=== PATIENT | male | born 1960 | race Caucasian/White ===

== ENCOUNTER 2021-07-27 16:32 | Observation (INO) | payer BC, SELFPAY ==
[2021-07-27] VITALS (7 sets, daily range): BP systolic 134–168; BP diastolic 84–99; PULSE 60–74; RESP 16–20; TEMP 35.6–36.9; O2SAT 94–99; BMI 24.7; BMI 24.4
--- NOTE | 2021-07-27 16:34 | NURSING ---
NO OLD EKGS
--- NOTE | 2021-07-27 17:07 | EDS_ITS ---
HPI History of Present Illness Chief Complaint: Chest Pain Informant: patient Onset/Context/Timing Onset: Weeks (3-4) Activity at onset: gradual Timing: Intermittent Quality: Positive for Heaviness and Tightness Location: Substernal and Left Parasternal Worsened By: Exertion Relieved By: Nothing Associated Symptoms: Positive for Dyspnea, Lightheadedness and Acid Reflux; Negative for Nausea, Vomiting, Diaphoresis, Cough, Fever and Palpitations Narrative Narrative: Patient presents with chest pain that has been intermittent over the last 3 to 4 weeks. Patient states that it comes on after he is done exercising. Patient describes it as a heaviness and tightness in his lower chest and left parasternal area. Patient states it is also worse with stress. Patient admits to some shortness of breath and lightheadedness. Patient denies any nausea or vomiting. Patient denies any diaphoresis. Patient denies any cough or fever. CVD Risk Factors: Positive for Hypercholesterolemia; Negative for Hypertension, Diabetes, Family History 1' </=55 and Smoking PE Risk Factors: Negative for Recent Travel/Surgery, Recent Immobilization, Prior DVT or PE, Cancer and OCP + Smoking + >/=35 PFSH PFSH Medical History Cholecystectomy planned GERD (gastroesophageal reflux disease) Hyperlipemia Home Medications atorvastatin 20 mg PO QHS 07/27/21 [History Last Taken 07/27/21] omeprazole 20 mg PO DAILY 07/27/21 [History Last Taken 07/26/21] Allergy/AdvReac Type Severity Reaction Status Date / Time No Known Allergies Allergy Verified 07/27/21 16:35 Family History (Updated 07/27/21 @ 19:09 by Marta Giang NP-C) Father Myocardial infarction CAD (coronary artery disease) Heart disease Sister Hypertension Mother Hypertension also has CHF Surgical History Hx of cholecystectomy Social History (Updated 07/27/21 @ 19:[address] Chelsey Carnes MD) household members: spouse Smoking Status: Never smoker alcohol intake: current alcohol intake frequency: holidays/special occasions only substance use type: does not use ROS ROS ED Constitutional Constitutional ED: Denies chills or fever(s) Eyes Eyes: Denies blurry vision or change in vision ENT ENT ED: Denies rhinorrhea or sore throat Cardiovascular Cardiovascular: Reports chest pain; Denies palpitations Respiratory/Chest Respiratory/Chest: Reports dyspnea; Denies cough Gastrointestinal Gastrointestinal: Reports nausea; Denies abdominal pain or vomiting Genitourinary Genitourinary ED: Denies dysuria or hematuria Musculoskeletal Musculoskeletal: Denies back pain or neck pain Integumentary Denies abscess or rash Neurologic Neurologic: Denies headache(s) or weakness Allergic/Immunologic Allergic/Immunologic ED: Denies mouth swelling or urticaria EXAM Physical Exam Const Vital Signs: 07/27/21 16:34 07/27/21 16:48 07/27/21 17:19 Temperature 96.9 F L Temperature Source Temporal Pulse Rate 69 66 Respiratory Rate 16 18 Respiratory Effort Normal Blood Pressure 168/97 H 161/98 H Blood Pressure Mean 120 119 Pulse Ox 99 98 Oxygen Delivery Method Room Air Room Air Room Air 07/27/21 18:38 07/27/21 18:51 Temperature 98.1 F Temperature Source Temporal Pulse Rate 65 60 Respiratory Rate 20 H 18 Respiratory Effort Blood Pressure 137/92 H 156/98 H Blood Pressure Mean 107 117 Pulse Ox Oxygen Delivery Method Positive well nourished and well developed General Appearance ED: well developed and NAD HEENT normocephalic and atraumatic Eyes PERRL and EOMs intact bilaterally Neck supple and no JVD Chest Wall palpation of chest normal Resp normal respiratory effort and clear to auscultation bilaterally Effort and Inspection: Negative for respiratory distress Cardio regular rate, regular rhythm and no murmurs GI normal to inspection, nondistended, normoactive bowel sounds, soft to palpation, non-tender and non-distended Extremity normal to inspection General Extremety ED: Negative for edema or tenderness General Extremity: Negative for edema Neuro oriented x3, CN's II-XII intact bilaterally and no sensory deficits noted Sensorium / Orientation: awake and alert Motor Exam: strength 5/5 throughout Psych mental status grossly normal Heart Score History: Moderately Suspicious ECG: Normal Age: >45 - <65 years Risk Factors: 1 or 2 Risk Factors Troponin: </= Normal Limit Score: 3 MDM MDM MDM Narrative Medical decision making narrative: EKG was obtained. On my interpretation, it showed a normal sinus rhythm with a rate of 64. PA interval, QRS interval, and QTc intervals were all normal. There is left axis deviation at -36. There are no acute ST or T wave changes. CBC was within normal limits. Basic metabolic profile shows a BUN of 24 and creatinine 1.31. There are no prior values to compare with. Initial high-sensitivity troponin was normal at 26. Portable 1 view chest x-ray was obtained. On my interpretation, lung clemens are clear. There is normal cardiac silhouette. Bony thorax is normal. There is no acute process noted. Radiologist also interpreted the x-ray and agrees. I discussed the case with the hospitalist. Patient will be admitted to the hospital for observation and stress testing. Patient understands and is agreeable with the plan. All questions were answered. Lab Data Attestation: I reviewed the patient's lab results. Labs: Laboratory Results - last 24 hr 07/27/21 07/27/21 07/27/21 16:50 16:50 16:50 WBC 6.6 RBC 5.28 Hgb 16.2 Hct 47.1 MCV 89.2 MCH 30.7 MCHC 34.4 RDW Std Deviation 40.6 RDW Coeff of Ama 12.3 Plt Count 211 MPV 10.5 Immature Gran % (Auto) 0.300 Neut % (Auto) 61.2 Lymph % (Auto) 28.2 [place] % (Auto) 9.1 Eos % (Auto) 0.9 Baso % (Auto) 0.3 Absolute Neuts (auto) 4.0 Absolute Lymphs (auto) 1.86 Nucleated RBC % 0 Sodium 141 Potassium 4.1 Chloride 107 Carbon Dioxide 30.0 Anion Gap 4 L BUN 24 H Creatinine 1.31 H Estim Creat Clear Calc 53.44 Est GFR (MDRD) Af Amer 71 Est GFR (MDRD) Non-Af 59 L BUN/Creatinine Ratio 18.3 Glucose 105 Calcium 9.5 Troponin I High Sens 26 Radiography Chest X-Ray - ED: 1 View, Read by ED Physician, Read by Radiologist and No Acute Disease Diagnostic Testing: Clinical Impression(s) from Imaging Studies Chest X-Ray 07/27/21 17:25 IMPRESSION: Normal x-ray examination of the chest. Electronically Signed: Mac Moulton DO at 18:58 EDT Reading Location ID and State: [facility] / [place] Tel [phone], Service support , EKG Initial EKG: Attestation: I personally reviewed and interpreted this EKG as follows: Interpretation: Sinus Rhythm (64) and No Acute Injury Pattern Comments: Left axis deviation Prior EKG tracings: not available for review Discharge Plan Dx/Rx/DC Orders Clinical Impression: Chest pain, Hypercholesterolemia Disposition Disposition: Acute Care Hospital [facility] Discharge Date/Time: 07/27/21 19:03
--- NOTE | 2021-07-27 17:12 | EKG12_ITS ---
Test Reason : CP Blood Pressure : / mmHG Vent. Rate : 064 BPM Atrial Rate : 064 BPM P-R Int : 178 ms QRS Dur : 108 ms QT Int : 390 ms P-R-T Axes : 014 -36 005 degrees QTc Int : 402 ms Normal sinus rhythm Left axis deviation Abnormal ECG Confirmed by MILADIS THRASHER, MELLISA ([id number]), editor dictionary DORENE MONROE ([id number]) on 07/28/2021 11:17:51 AM Referred By: CHUCK/ROSA Confirmed By:MELLISA REDDING MD
[2021-07-27] MEDS: Aspirin 81 MG TAB.CHEW 324 MG PO (17:22)
--- NOTE | 2021-07-27 17:25 | RAD_ITS ---
STUDY: X-RAY CHEST REASON FOR EXAM: Male, 60 years old. Chest pain TECHNIQUE: Frontal view COMPARISON: None. FINDINGS: The lungs are clear and expanded. There is no demonstrated pleural abnormality. Normal size heart. Normal mediastinum and adrianne. Normal visualized pulmonary arteries. Normal visualized aortic arch and descending thoracic aorta. Normal visualized thoracic spine. Normal visualized ribs, clavicles, and shoulders. There is no demonstrated abnormality of the visualized soft tissue structures of the upper abdomen. RAD/Chest 1 View (Portable) IMPRESSION: Normal x-ray examination of the chest. Electronically Signed: Mac Moulton DO at 18:58 EDT Reading Location ID and State: [facility] / [place] Tel [phone], Service support ,
[2021-07-27 17:46] LABS: Absolute Lymphocyte Count 1.86 X10^3/uL (0.83-4.51); Basophil# 0.02 X10^3/uL; Basophil% 0.3 % (0-1); Eosinophil# 0.06 X10^3/uL; Eosinophils% 0.9 % (0-5); Hematocrit 47.1 % (40-54); Hemoglobin 16.2 g/dL (13.0-16.5); Lymphocyte # 1.86 X10^3/ul (0.83-4.51); Lymphocyte % 28.2 % (19-41); Mean Corp Hgb Conc 34.4 g/dL (32-36); Mean Corpuscular Hgb 30.7 pg (27.0-32.0); Mean Corpuscular Volume 89.2 fL (80-94); Mean Platelet Vol. 10.5 fl (6.2-12.0); Monocyte% 9.1 % (0-10); NRBC Flagged by Analyzer 0 % (0-5); Neutrophil # 4.03 X10^3/uL (2.7-7.7); Neutrophil % 61.2 % (47-70); Platelet Count 211 K/mm3 (150-450); RBC Distribution Width CV 12.3 % (11.6-14.6); RBC Distribution Width SD 40.6 fl (35.1-43.9); Red Blood Count 5.28 M/mm3 (4.6-6.2); White Blood Count 6.6 K/mm3 (4.4-11.0)
[2021-07-27 18:02] LABS: Anion Gap 4 (5-15); BUN 24 mg/dL (7-18); BUN/Creat Ratio 18.3 RATIO (10-20); Calcium,Total 9.5 mg/dL (8.5-10.1); Chloride 107 mmol/L (98-107); Creatinine, Serum 1.31 mg/dL (0.70-1.30); EST Glomerular Filtration Rate 59 mL/min (>60); Est Glom Filt Rate - Afr Amer 71 mL/min (>60); Estimated Creatinine Clearance 53.44 ml/min; Glucose 105 mg/dL (74-106); Potassium 4.1 mmol/L (3.5-5.1); Sodium Level 141 mmol/L (136-145)
[2021-07-27 18:07] LABS: Troponin-I HS (w/2H Reflex) 26 pg/mL (3.0-78.0)
[2021-07-27 18:51] LABS: Reflex Troponin-HS? (from REC) Y
--- NOTE | 2021-07-27 19:05 | PCM.HP.STD ---
Documented by User: PAULA Duke 07/27/21 19:17 HPI - General General Date of Admission: 07/27/21 Date of Service: 07/27/21 Chief Complaint: Chest pain HPI Narrative KAVIN WOLFE, is a 60 M who presents with complaints of chest pain and pressure intermittently over the past few weeks. Patient states that it is a dull ache more than a sharp pain and does not come on during exercise but after exercise is complete. Patient's is at bedside and stated that the most recent episode was this morning after patient completed his workout. Patient states that it is always directly after physical activity and does go away with rest. Patient has no known cardiac disease. Patient's medical history includes chronic gastritis and hyperlipidemia for which patient has been on Lipitor for at least 20 years. FORMERLY [facility], [facility]–1983 Medical History Cholecystectomy planned GERD (gastroesophageal reflux disease) Hyperlipemia Home Medications atorvastatin 20 mg PO QHS 07/27/21 [History Last Taken 07/27/21] omeprazole 20 mg PO DAILY 07/27/21 [History Last Taken 07/26/21] Allergy/AdvReac Type Severity Reaction Status Date / Time No Known Allergies Allergy Verified 07/27/21 16:35 Family History (Updated 07/27/21 @ 19:09 by PAULA Duke) Father Myocardial infarction CAD (coronary artery disease) Heart disease Sister Hypertension Mother Hypertension also has CHF Surgical History Hx of cholecystectomy Social History (Updated 07/27/21 @ 19:[address] Chelsey Carnes MD) household members: spouse Smoking Status: Never smoker alcohol intake: current alcohol intake frequency: holidays/special occasions only substance use type: does not use ROS Constitutional Constitutional: Denies anorexia, chills, fatigue, fever(s) or weakness Cardiovascular Cardiovascular: Reports chest pain with activity; Denies edema, irregular heart rhythm, leg edema, nausea or vomiting Respiratory/Chest Respiratory/Chest: Denies cough, shortness of breath at rest, shortness of breath with exertion or wheezing Gastrointestinal Gastrointestinal: Denies abdominal pain, constipation, diarrhea, nausea or vomiting Genitourinary Genitourinary: Denies dysuria Musculoskeletal Musculoskeletal: Denies back pain, extremity pain, joint pain or joint stiffness Integumentary Integumentary: Denies dry skin Neurologic Neurologic: Denies abnormal gait, abnormal speech, confusion or dizziness Psychiatric Psychiatric: Reports anxiety; Denies depression Endocrine Endocrinology: Denies change in body appearance Hematologic/Lymphatic Hematologic/Lymphatic: Denies anemia Vital Signs Vital Signs Vital Signs: 07/27/21 16:34 07/27/21 16:48 07/27/21 17:19 Temperature 96.9 F L Temperature Source Temporal Pulse Rate 69 66 Respiratory Rate 16 18 Respiratory Effort Normal Blood Pressure 168/97 H 161/98 H Blood Pressure Mean 120 119 Pulse Ox 99 98 Oxygen Delivery Method Room Air Room Air Room Air 07/27/21 18:38 07/27/21 18:51 Temperature 98.1 F Temperature Source Temporal Pulse Rate 65 60 Respiratory Rate 20 H 18 Respiratory Effort Blood Pressure 137/92 H 156/98 H Blood Pressure Mean 107 117 Pulse Ox Oxygen Delivery Method Weight Weight: 153 lb Body Mass Index (BMI) 24.7 Physical Exam Const alert, oriented x3 and no apparent distress General Appearance: cooperative HEENT normocephalic and head/scalp atraumatic Eyes conjunctivae normal and no scleral icterus Neck no lymphadenopathy and supple General: trachea midline Resp normal respiratory effort, normal air movement and clear to auscultation bilaterally Cardio regular rate, regular rhythm, S1 normal heart sound, S2 normal heart sound and peripheral pulses 2+ throughout GI normal to inspection, nondistended, normoactive bowel sounds, soft to palpation and non-tender Extremity normal capillary refill and no clubbing, cyanosis or edema General Extremity: no tenderness to palpation of joints or extremities Skin General Skin Exam: no breakdown and turgor normal Lesions: no lesions Rashes: no rashes Neuro no focal motor deficits and no sensory deficits noted Motor Exam: Negative for general weakness Psych thought process normal, cooperative and affect normal Appearance: appropriate Results Lab / Micro Data Result Diagrams: 07/27/21 16:50 07/27/21 16:50 Labs: Laboratory Results - last 24 hr 07/27/21 16:50: WBC 6.6, RBC 5.28, Hgb 16.2, Hct 47.1, MCV 89.2, MCH 30.7, MCHC 34.4, RDW Std Deviation 40.6, RDW Coeff of Ama 12.3, Plt Count 211, MPV 10.5, Immature Gran % (Auto) 0.300, Neut % (Auto) 61.2, Lymph % (Auto) 28.2, [place] % (Auto) 9.1, Eos % (Auto) 0.9, Baso % (Auto) 0.3, Absolute Neuts (auto) 4.0, Absolute Lymphs (auto) 1.86, Nucleated RBC % 0 07/27/21 16:50: Sodium 141, Potassium 4.1, Chloride 107, Carbon Dioxide 30.0, Anion Gap 4 L, BUN 24 H, Creatinine 1.31 H, Estim Creat Clear Calc 53.44, Est GFR (MDRD) Af Amer 71, Est GFR (MDRD) Non-Af 59 L, BUN/Creatinine Ratio 18.3, Glucose 105, Calcium 9.5 07/27/21 16:50: Troponin I High Sens 26 Radiology Impression Chest X-Ray 07/27/21 17:25 IMPRESSION: Normal x-ray examination of the chest. Electronically Signed: Mac Moulton DO at 18:58 EDT Reading Location ID and State: [address] [place] [address] Tel [phone], Service support , Assessment & Plan Assessment/Plan (1) Chest pain: QUALIFIERS: Chest pain type: unspecified Qualified Code(s): R07.9 - Chest pain, unspecified PLAN: 1. Chest pain -Admit to PCU for cardiac monitoring -Trend cardiac enzymes overnight -Treadmill stress test ordered for a.m. -Cardiac diet ordered, n.p.o. at midnight -Daily weight -CBC and BMP ordered for a.m. -Vital signs per protocol -Oxygen therapy per protocol as needed -As needed morphine and nitroglycerin ordered -P.o. baby aspirin ordered daily 2. Renal insufficiency versus chronic disease -BUN and creatinine elevated at 24 and 1.31 respectively -No comparison labs available at this time -We will repeat BMP in a.m. 3. Hyperlipidemia -Continue atorvastatin 4. Chronic gastritis -Continue omeprazole DVT prophylaxis-not indicated This patient was seen by PAULA Duke under the supervision of Dr. Carnes. 28 minutes spent in clinical coordination of patient's plan of care. Documented by User: Dr. Chelsey Carnes MD 07/27/21 19:30 HPI - General General Date of Admission: 07/27/21 PFSH Medical History Cholecystectomy planned GERD (gastroesophageal reflux disease) Hyperlipemia Home Medications atorvastatin 20 mg PO QHS 07/27/21 [History Last Taken 07/27/21] omeprazole 20 mg PO DAILY 07/27/21 [History Last Taken 07/26/21] Allergy/AdvReac Type Severity Reaction Status Date / Time No Known Allergies Allergy Verified 07/27/21 16:35 Family History (Updated 07/27/21 @ 19:09 by ANTIONE DukeC) Father Myocardial infarction CAD (coronary artery disease) Heart disease Sister Hypertension Mother Hypertension also has CHF Surgical History Hx of cholecystectomy Social History (Updated 07/27/21 @ 19:[address] Chelsey Carnes MD) household members: spouse Smoking Status: Never smoker alcohol intake: current alcohol intake frequency: holidays/special occasions only substance use type: does not use Results Lab / Micro Data Result Diagrams: 07/27/21 16:50 07/27/21 16:50
--- NOTE | 2021-07-27 20:18 | EKG12_ITS ---
Test Reason : AM EKG Blood Pressure : / mmHG Vent. Rate : 055 BPM Atrial Rate : 055 BPM P-R Int : 190 ms QRS Dur : 110 ms QT Int : 430 ms P-R-T Axes : 005 -14 003 degrees QTc Int : 411 ms Sinus bradycardia Otherwise normal ECG Confirmed by MILADIS THRASHER, MELLISA ([id number]), slot editor DORENE MONROE ([id number]) on 07/29/2021 10:02:54 AM Referred By: Confirmed By:MELLISA REDDING MD
[2021-07-27 20:33] LABS: Troponin-I HS 26 pg/mL (3.0-78.0)
[2021-07-27] MEDS: Ibuprofen 600 MG Tablet PO (22:12)
[2021-07-27] MEDS: 0.9% Normal Saline 1,000 ML 100 ML IV (22:17)
[2021-07-27] MEDS: 0.9% Saline Lock 10 ML Syringe IV (22:18)
[2021-07-27 23:12] LABS: Troponin-I HS 25 pg/mL (3.0-78.0)
[2021-07-28] VITALS (8 sets, daily range): BP systolic 128–148; BP diastolic 73–95; PULSE 49–76; RESP 12–16; TEMP 36.1–36.6; O2SAT 97–100
[2021-07-28 05:55] LABS: Absolute Lymphocyte Count 2.17 X10^3/uL (0.83-4.51); Absolute Neutrophil Count 3.5 X10^3/uL (2.0-7.7); Basophil# 0.03 X10^3/uL; Basophil% 0.5 % (0-1); Eosinophil# 0.11 X10^3/uL; Eosinophils% 1.7 % (0-5); Hematocrit 41.8 % (40-54); Hemoglobin 14.5 g/dL (13.0-16.5); Lymphocyte # 2.17 X10^3/ul (0.83-4.51); Lymphocyte % 33.6 % (19-41); Mean Corp Hgb Conc 34.7 g/dL (32-36); Mean Corpuscular Hgb 30.6 pg (27.0-32.0); Mean Corpuscular Volume 88.2 fL (80-94); Mean Platelet Vol. 10.5 fl (6.2-12.0); Monocyte% 9.3 % (0-10); NRBC Flagged by Analyzer 0 % (0-5); Neutrophil # 3.53 X10^3/uL (2.7-7.7); Neutrophil % 54.6 % (47-70); Platelet Count 157 K/mm3 (150-450); RBC Distribution Width CV 12.3 % (11.6-14.6); RBC Distribution Width SD 39.9 fl (35.1-43.9); Red Blood Count 4.74 M/mm3 (4.6-6.2); White Blood Count 6.5 K/mm3 (4.4-11.0)
--- NOTE | 2021-07-28 05:55 | EKG12_ITS ---
Test Reason : CP ADMIT Blood Pressure : / mmHG Vent. Rate : 061 BPM Atrial Rate : 061 BPM P-R Int : 180 ms QRS Dur : 108 ms QT Int : 402 ms P-R-T Axes : 001 -32 -03 degrees QTc Int : 404 ms Normal sinus rhythm Left axis deviation Abnormal ECG Confirmed by MILADIS THRASHER, MELLISA ([id number]), market editor DORENE MONROE ([id number]) on 07/29/2021 10:03:21 AM Referred By: Confirmed By:MELLISA REDDING MD
[2021-07-28] MEDS: Aspirin 81 MG TAB.CHEW PO (06:30)
[2021-07-28 06:41] LABS: Anion Gap 5 (5-15); BUN 21 mg/dL (7-18); BUN/Creat Ratio 20.2 RATIO (10-20); Calcium,Total 8.4 mg/dL (8.5-10.1); Chloride 109 mmol/L (98-107); Cholesterol 116 mg/dL (200); Creatinine, Serum 1.04 mg/dL (0.70-1.30); EST Glomerular Filtration Rate 77 mL/min (>60); Est Glom Filt Rate - Afr Amer 93 mL/min (>60); Estimated Creatinine Clearance 67.31 ml/min; Glucose 99 mg/dL (74-106); High Density Lipoprotein 44 mg/dL; Magnesium 2.2 mg/dL (1.6-2.6); Sodium Level 139 mmol/L (136-145); Triglycerides 112 mg/dL; Very Low Density Lipoprotein 22 mg/dL (5-40)
--- NOTE | 2021-07-28 12:41 | STRESSREP_ITS ---
Stress Test Report Date: 07-28-2021 Procedure: Exercise tolerance test/imaging study Indications: Chest pain Consent: Per the patient Procedure: The patient exercised on a Giuseppe protocol for 9 minutes completing Stage III achieving a peak heart rate of 148 bpm (93% predicted maximal heart rate) with a peak blood pressure 162/90 mmHg and a peak MET capacity of 10 METs. The baseline ECG demonstrated normal sinus rhythm. The peak exercise ECG demonstrated no obvious ECG changes. There were no cardiac dysrhythmias pretest, during exercise, or recovery. The functional capacity was considered good. There was chest discomfort pretest which was not reported during exercise or recovery. The examination was discontinued secondary to dyspnea. Impression: 1. Technically adequate (percent predicted maximal heart rate greater than 85%) exercise tolerance test 2. Peak exercise ECG with no obvious ECG changes 3. There were no cardiac dysrhythmias pretest, during exercise, or recovery 4. Nuclear images pending Myocardial perfusion imaging study: Technique: The patient was injected with 12.0 mCi of technetium 99m Cardiolite and subsequently rest SPECT Cardiolite nuclear imaging was obtained in the horizontal long, vertical long, and short axis views. The patient exercised on a Giuseppe protocol for 9 minutes completing Stage III achieving a peak heart rate of 148 bpm (93% predicted maximal heart rate) with a peak blood pressure 162/90 mmHg and a peak MET capacity of 10 METs. The patient was injected with 33.6 mCi of technetium 99m Cardiolite and subsequently stress SPECT Cardiolite nuclear imaging was obtained in the horizontal long, vertical long, and short axis views. A gated Cardiolite study at peak stress was obtained. Interpretation: Rest and stress SPECT Cardiolite nuclear imaging status post realignment, normalization, and attenuation correction, demonstrates the appearance of relative uniform tracer uptake and myocardial perfusion appearing within normal limits. There is end systolic thickening and brightening. The gated Cardiolite study demonstrates myocardial thickening and inward wall motion. The reported LVEF is 57%. Impression: 1. Rest and stress SPECT Cardiolite nuclear imaging demonstrate relative uniform tracer uptake and myocardial perfusion appearing within normal limits. 2. The gated Cardiolite study reports an LVEF of 57%. This note was generated with [employer] software. It may contain incorrect words, spelling, and punctuation that were not noted in checking the note before signing.
--- NOTE | 2021-07-28 13:59 | PCM.DC ---
Discharge Instructions Diet Discharge Diet: No restrictions Activity Discharge Activity: Return to Normal Activity Follow Up Care Test Results: Test results from this visit will be discussed in further detail at your follow-up appointment, if applicable. Discharge Plan Admission Admit Date/Time: 07/27/21 18:59 Primary Reason for Your Visit: chest pain Attending Provider: Luis Osborne Primary Care Provider: Olayinka Blanton NP Discharge Orders/Prescriptions Prescriptions: Continued atorvastatin 20 mg tablet 20 mg PO DAILY RF: 0 omeprazole 20 mg capsule,delayed release(DR/EC) 20 mg PO QHS RF: 0 Referrals / Follow Up: Olayinka Blanton NP, SENIOR JAVASCRIPT DEVELOPER-C [Primary Care Provider] - 08/11/21 Disposition Disposition (needs filled in before D/C Order can be placed): Home, Self Care
--- NOTE | 2021-07-28 14:01 | PCM.DC.SUM ---
Providers Date of Admission: 07/27/21 Primary Care Physician: PAULA Garcia Reason For Visit: CHEST PAIN Diagnosis Discharge Diagnosis (1) Chest pain: Status: Acute Code(s): R07.9 - Chest pain, unspecified Qualifiers: Chest pain type: unspecified Qualified Code(s): R07.9 - Chest pain, unspecified Medications at Discharge Home Medications atorvastatin 20 mg PO DAILY 07/27/21 omeprazole 20 mg PO QHS 07/27/21 Hospital Course Operations None Procedures None Summary of Care Provided Minutes Spent on Discharge: 24 Hospital Course: This is a 60-year-old male presents with a 2-week history of a left-sided chest pain. Worse with exertion and also when he menezes exertion but gets better with rest overall. No other constitutional symptoms. Patient was advised to come to the emergency room. Patient underwent a nuclear stress test today that was unremarkable. Additionally, patient's troponin series was negative and his EKG was unremarkable. Explained the patient that his chest pain is noncardiac and no further restrictions are necessary at this point in time patient can be discharged home. Discussed with the patient and his significant other at bedside. Physical Exam HEENT normocephalic, head/scalp atraumatic, hearing grossly normal bilaterally and moist oral mucous membranes Resp normal respiratory effort, no retractions, no use of accessory muscles and clear to auscultation bilaterally Cardio regular rate, regular rhythm, S1 normal heart sound and S2 normal heart sound GI normal to inspection, nondistended, normoactive bowel sounds, soft to palpation, non-tender and non-distended Weight / BMI Weight Weight: 68.7 kg Body Mass Index (BMI) 24.4 ABG / Lab / Microbiology Data Result Diagrams: 07/28/21 05:32 07/28/21 05:32 Laboratory: Laboratory Results - last 24 hr 07/27/21 16:50: WBC 6.6, RBC 5.28, Hgb 16.2, Hct 47.1, MCV 89.2, MCH 30.7, MCHC 34.4, RDW Std Deviation 40.6, RDW Coeff of Ama 12.3, Plt Count 211, MPV 10.5, Immature Gran % (Auto) 0.300, Neut % (Auto) 61.2, Lymph % (Auto) 28.2, [place] % (Auto) 9.1, Eos % (Auto) 0.9, Baso % (Auto) 0.3, Absolute Neuts (auto) 4.0, Absolute Lymphs (auto) 1.86, Nucleated RBC % 0 07/27/21 16:50: Sodium 141, Potassium 4.1, Chloride 107, Carbon Dioxide 30.0, Anion Gap 4 L, BUN 24 H, Creatinine 1.31 H, Estim Creat Clear Calc 53.44, Est GFR (MDRD) Af Amer 71, Est GFR (MDRD) Non-Af 59 L, BUN/Creatinine Ratio 18.3, Glucose 105, Calcium 9.5 07/27/21 16:50: Troponin I High Sens 07/27/21 19:35: Troponin I High Sens 07/27/21 22:45: Troponin I High Sens 07/28/21 05:32: WBC 6.5, RBC 4.74, Hgb 14.5, Hct 41.8, MCV 88.2, MCH 30.6, MCHC 34.7, RDW Std Deviation 39.9, RDW Coeff of Ama 12.3, Plt Count 157, MPV 10.5, Immature Gran % (Auto) 0.300, Neut % (Auto) 54.6, Lymph % (Auto) 33.6, [place] % (Auto) 9.3, Eos % (Auto) 1.7, Baso % (Auto) 0.5, Absolute Neuts (auto) 3.5, Absolute Lymphs (auto) 2.17, Nucleated RBC % 0 07/28/21 05:32: Sodium 139, Potassium 4.0, Chloride 109 H, Carbon Dioxide 25.0, Anion Gap 5, BUN 21 H, Creatinine 1.04, Estim Creat Clear Calc 67.31, Est GFR (MDRD) Af Amer 93, Est GFR (MDRD) Non-Af 77, BUN/Creatinine Ratio 20.2 H, Glucose 99, Calcium 8.4 L, Magnesium 2.2, Triglycerides 112, Cholesterol 116, LDL Cholesterol 50, VLDL Cholesterol 22, HDL Cholesterol 44 Radiography Diagnostic Testing: Radiology Impression Chest X-Ray 07/27/21 17:25 IMPRESSION: Normal x-ray examination of the chest. Electronically Signed: Mac Moulton DO at 18:58 EDT Reading Location ID and State: [facility] / [place] Tel [phone], Service support , D/C Instructions Discharge Diet: No restrictions Meaningful Use Info Meaningful Use Diagnoses (Choose all that apply): None applicable Discharge Plan Admission Admit Date/Time: 07/27/21 18:59 Primary Reason for Your Visit: chest pain Attending Provider: Luis Osborne Primary Care Provider: Olayinka Blanton NP Discharge Orders/Prescriptions Prescriptions: Continued atorvastatin 20 mg tablet 20 mg PO DAILY RF: 0 omeprazole 20 mg capsule,delayed release(DR/EC) 20 mg PO QHS RF: 0 Referrals / Follow Up: Olayinka Blanton NP, ALTERNATIVE ENERGY ENGINEER-C [Primary Care Provider] - 08/11/21 Disposition Disposition (needs filled in before D/C Order can be placed): Home, Self Care Charges/Coding Visit Charges OBSV E&M: 19684 Observation care discharge
== END 2021-07-28 14:01 | disposition home or self-care (01) ==
LOC: ED 17:03 → PCU 19:45
PROVIDERS: Nurse Practitioner Family; Admitting Provider Family Medicine; Emergency Provider Emergency Medicine; PCP Nurse Practitioner Family
DX: R07.2 Precordial pain (principal); R03.0 Elevated blood-pressure reading, without diagnosis of hypertension; E78.5 Hyperlipidemia, unspecified; K29.50 Unspecified chronic gastritis without bleeding; K21.9 Gastro-esophageal reflux disease without esophagitis; Z79.899 Other long term (current) drug therapy
CPT/HCPCS: 36415; 71045; 78452; 80048; 80061; 83735; 84484; 85025; 93005; 93017; 96360; 96361; 99218; 99285; A9500; J7030; A4216; G0378

== ENCOUNTER 2023-06-17 09:32 | Emergency (ER) | payer OTHER, SELFPAY ==
[2023-06-17 09:33] VITALS: BP 118/75; PULSE 52; RESP 16; TEMP 35.6; O2SAT 98; BMI 24.4
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
--- NOTE | 2023-06-17 10:00 | CT_ITS ---
STUDY: CT BRAIN WITHOUT CONTRAST REASON FOR EXAM: Male, 62 years old. Syncopal episode. RADIATION DOSAGE (If Supplied By Facility): CTDIvol = ( 44.99 ) mGy, DLP = ( 812.98 ) mGycm TECHNIQUE: Transaxial CT imaging of the brain was performed without administration of intravenous contrast material. Individualized dose optimization techniques were used for this CT. COMPARISON: No relevant priors. FINDINGS: Normal soft tissue structures. Normal calvarium. There is mild cerebral atrophy with widening of the extra-axial spaces and ventricular dilatation. Normal white matter tracts of the cerebral hemispheres. Normal basal ganglia and thalami. Normal brainstem. Normal cerebellum. There is no intracranial hemorrhage. There are no findings of an acute ischemic infarction. Atherosclerotic plaque formation of the cavernous portions of the internal carotid arteries bilaterally. Normal visualized paranasal sinuses. CT/Brain/Head without Contrast IMPRESSION: Chronic involutional changes of the brain. Electronically Signed: Gopi Edge MD at 10:38 EDT ,
--- NOTE | 2023-06-17 10:00 | RAD_ITS ---
STUDY: X-RAY CHEST REASON FOR EXAM: Male, 62 years old. Syncope TECHNIQUE: Single AP portable view of the chest. COMPARISON: Comparison is made with prior study July 27, 2021. FINDINGS: EKG electrodes are seen. The lungs are clear and expanded. There is no demonstrated pleural abnormality. Normal size heart. Normal mediastinum and adrianne. Normal visualized pulmonary arteries. There is atherosclerotic tortuosity of the aortic arch and descending thoracic aorta. There are mild degenerative changes of the visualized thoracic spine. Normal visualized ribs, clavicles, and shoulders. There is no demonstrated abnormality of the visualized soft tissue structures of the upper abdomen. RAD/Chest 1 View (Portable) IMPRESSION: Normal x-ray examination of the chest. Electronically Signed: Gopi Edge MD at 10:39 EDT ,
[2023-06-17] MEDS: 0.9% Normal Saline (1000mL) 1,000 ML 1000 ML IV (10:32)
[2023-06-17 10:33] VITALS: BP 116/81; PULSE 79; RESP 17; O2SAT 98
[2023-06-17 10:37] LABS: Absolute Lymphocyte Count 1.54 X10^3/uL (0.83-4.51); Basophil# 0.06 X10^3/uL; Basophil% 0.6 % (0-1); Eosinophil# 0.02 X10^3/uL; Eosinophils% 0.2 % (0-5); Hematocrit 46.8 % (40-54); Hemoglobin 16.3 g/dL (13.0-16.5); Lymphocyte # 1.54 X10^3/ul (0.83-4.51); Lymphocyte % 16.3 % (19-41); Mean Corp Hgb Conc 34.8 g/dL (32-36); Mean Corpuscular Hgb 30.7 pg (27.0-32.0); Mean Corpuscular Volume 88.1 fL (80-94); Mean Platelet Vol. 10.2 fl (6.2-12.0); Monocyte# 0.75 X10^3/uL; Monocyte% 7.9 % (0-10); NRBC Flagged by Analyzer 0 % (0-5); Neutrophil # 7.03 X10^3/uL (2.7-7.7); Neutrophil % 74.5 % (47-70); Platelet Count 203 K/mm3 (150-450); RBC Distribution Width CV 12.1 % (11.6-14.6); RBC Distribution Width SD 39.1 fl (35.1-43.9); Red Blood Count 5.31 M/mm3 (4.6-6.2); White Blood Count 9.5 K/mm3 (4.4-11.0)
[2023-06-17 10:43] LABS: ALB/GLOB Ratio 1.2 RATIO (0.9-2.4); AST(SGOT) 56 U/L (15-37); Alanine Aminotransfer ALT/SGPT 49 U/L (16-61); Albumin, Serum 4.3 g/dL (3.2-5.0); Alkaline Phosphatase 72 U/L (45-117); Anion Gap 6 (5-15); BUN 23 mg/dL (7-18); BUN/Creat Ratio 16.3 RATIO (10-20); Calcium,Total 9.8 mg/dL (8.5-10.1); Chloride 104 mmol/L (98-107); Creatinine, Serum 1.41 mg/dL (0.70-1.30); EST Glomerular Filtration Rate 54 mL/min (>60); Est Glom Filt Rate - Afr Amer 65 mL/min (>60); Estimated Creatinine Clearance 48.39 ml/min; Globulin 3.6 g/dL (2.2-4.2); Glucose 167 mg/dL (74-106); Lipase 55 U/L (13-75); Potassium 4.8 mmol/L (3.5-5.1); Protein, Total 7.9 g/dL (6.4-8.2); Sodium Level 138 mmol/L (136-145); Troponin-I HS (w/2H Reflex) 25 pg/mL (3.0-78.0)
[2023-06-17] MEDS: Ondansetron 4 MG/2 ML Vial IV (10:49)
[2023-06-17] MEDS: Morphine 4 MG/ML Syringe IV (10:49)
[2023-06-17 12:07] LABS: Reflex Troponin-HS? (from REC) Y
[2023-06-17 12:58] VITALS: BP 116/80; PULSE 78; RESP 18; O2SAT 95
[2023-06-17 12:58] LABS: Troponin-I HS 24 pg/mL (3.0-78.0)
[2023-06-17 13:41] LABS: Mucous, Urine 0 SEEN /hpf (<or=2+); Red Blood Cells-Urine 0 SEEN /hpf (0-5); White Blood Cells 0 SEEN /hpf (0-5)
[2023-06-17 13:42] LABS: Color, Urine Yellow (Yellow); Glucose, Dipstick Normal (Normal); Ketone-Dipstick 5 mg/dl (Negative); Leukocyte Esterase-Dipstick 25 /ul (Negative); Nitrite-Dipstick Negative (Negative); Occult Blood-Urine Negative /ul (Negative); Protein-Dipstick 30 mg/dl (Negative); Urine Bilirubin Dipstick Negative (Negative); Urine Clarity Sl. Cloudy (Clear); Urine Urobilinogen 1 mg/dl (Normal)
[2023-06-17 13:52] LABS: Squamous Epithelial Cells - UA 0-5 SEEN /hpf (0-5)
[2023-06-17 13:53] LABS: Bacteria RARE /hpf (None Seen)
[2023-06-17 14:42] VITALS: BP 118/78; PULSE 68; RESP 16; TEMP 37; O2SAT 97
== END 2023-06-17 14:49 | disposition home or self-care (01) ==
PROVIDERS: Emergency Provider Emergency Medicine; PCP Family Medicine; Visit Provider Emergency Medicine
DX: R55 Syncope and collapse (principal); E78.00 Pure hypercholesterolemia, unspecified; Z79.899 Other long term (current) drug therapy; V89.2XXA Person injured in unspecified motor-vehicle accident, traffic, initial encounter
CPT/HCPCS: 70450; 71045; 80053; 81001; 83690; 84484; 85025; 93005; 96361; 96374; 96375; 99285; A4216; J2405